=== PATIENT | female | born 1960 | race American Indian/Alaskan Native ===

== ENCOUNTER 2020-02-13 09:15 | Emergency (ER) | payer MEDICAID ==
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
== END 2020-02-13 10:16 | disposition left against medical advice (07) ==
LOC: JP.ED 09:15
DX: S01.112A Laceration without foreign body of left eyelid and periocular area, initial encounter (principal); S05.12XA Contusion of eyeball and orbital tissues, left eye, initial encounter; Z88.5 Allergy status to narcotic agent; F17.210 Nicotine dependence, cigarettes, uncomplicated; Y04.0XXA Assault by unarmed brawl or fight, initial encounter
CPT/HCPCS: 12011; 99284

== ENCOUNTER 2020-06-10 09:58 | Emergency (ER) | payer MEDICAID ==
--- NOTE | 2020-06-10 10:28 | EDM.PDOC ---
ED HPI GENERAL MEDICAL PROBLEM - General Chief Complaint: Lower Extremity Injury/Pain Stated Complaint: injured foot Time Seen by Provider: 06/10/20 10:24 Source of Information: Reports: Patient, EMS, RN Notes Reviewed History Limitations: Reports: No Limitations - History of Present Illness INITIAL COMMENTS - FREE TEXT/NARRATIVE: 59-year-old female presents emergency department today complaint of right ankle pain, states she fell last night twisting injury right ankle now she cannot bear weight - Related Data Allergies Allergy/AdvReac Type Severity Reaction Status Date / Time codeine Allergy Cannot Verified 06/10/20 10:16 Remember Home Meds: Home Meds NK [No Known Home Meds] 02/13/20 [History] Past Medical History [employer]ER History: Reports: Social & Family History - Tobacco Use Tobacco Use Status *Q: Current Every Day Tobacco User Years of Tobacco use: 5 Packs/Tins Daily: 0.5 - Caffeine Use Caffeine Use: Reports: None Review of Systems - Review of Systems Review Of Systems: See Below Musculoskeletal: Reports: Joint Pain (Ankle pain) ED EXAM, GENERAL - Physical Exam Exam: See Below Free Text/Narrative:: Examination of the right ankle I do appreciate some bruising along the lateral malleolus site on appreciate much edema she is very tender to any type of palpation along the ankle pedal pulses +2 cannot bear weight difficulty with flexion extension of the ankle Exam Limited By: No Limitations General Appearance: Alert, WD/WN, No Apparent Distress Respiratory/Chest: No Respiratory Distress Course - Vital Signs Last Recorded V/S: Last Vital Signs Temp 98.5 F 06/10/20 10:23 Pulse 63 06/10/20 10:23 Resp 14 06/10/20 10:23 BP 152/68 H 06/10/20 10:23 Pulse Ox 96 06/10/20 10:23 Departure - Departure Time of Disposition: 11:21 Disposition: Home, Self-Care 01 Condition: Fair Clinical Impression: Sprained ankle Qualifiers: Encounter type: initial encounter Involved ligament of ankle: unspecified ligament Laterality: right Qualified Code(s): S93.401A - Sprain of unspecified ligament of right ankle, initial encounter - Discharge Information Instructions: How to Use a Stirrup Ankle Brace, [id number], Crutch Use, Adult, [id number] Referrals: PCP,None [Primary Care Provider] - Forms: ED Department Discharge Additional Instructions: Use Tylenol or Motrin as needed for pain control, continue use the ankle brace and crutches for comfort, please followup with your primary care provider in 5- 7 days if not better, please call return to the emergency department with worsening of symptoms. Sepsis Event Note (ED) - Evaluation Sepsis Screening Result: No Definite Risk - Focused Exam Vital Signs: Vital Signs Temp Pulse Resp BP Pulse Ox 06/10/20 10:23 98.5 F 63 14 152/68 H 96 - Assessment/Plan Plan: Assessment Acuity = acute Site and laterality = right ankle sprain Etiology = secondary twisting injury Manifestations = none Location of injury = Home Lab values = x-ray reveals no fracture Plan She is placed in a air gel splint with crutches Tylenol and Motrin as needed for pain follow-up primary care next week for further evaluation if no improvement This note was dictated using [employer] voice recognition software please call with any questions on syntax or grammar.
--- NOTE | 2020-06-10 11:10 | CR ---
Ankle Min 3V Rt CLINICAL HISTORY: Pain, injury FINDINGS: The soft tissues are swollen particularly over the lateral malleolus.. No acute fracture or dislocation is noted. Ankle mortise is intact. Articular surfaces are smooth Impression: Soft tissue swelling No fracture or dislocation
[2020-06-10] MEDS ORDERED: Acetaminophen 325 MG Tab PO ONE (11:57)
== END 2020-06-10 14:32 | disposition home or self-care (01) ==
LOC: JP.ED 09:58
DX: S93.401A Sprain of unspecified ligament of right ankle, initial encounter (principal); Z88.5 Allergy status to narcotic agent; F17.210 Nicotine dependence, cigarettes, uncomplicated; X50.1XXA Overexertion from prolonged static or awkward postures, initial encounter
CPT/HCPCS: 73610; 99284; A9270

== ENCOUNTER 2024-01-31 01:17 | Emergency (ER) | payer MEDICAID ==
[2024-01-31] MEDS ORDERED: Rocuronium 50 MG/5 ML Vial ONE (01:29)
[2024-01-31] MEDS ORDERED: propofoL 100 ML ONE (01:31)
[2024-01-31] MEDS: Etomidate 2 MG/ML 10 ML SDV IVPUSH ONE ×2 (01:47→18:32)
[2024-01-31] MEDS: Rocuronium 50 MG/5 ML Vial IVPUSH ONE ×2 (01:47→18:31)
[2024-01-31] MEDS: propofoL 100 ML IV SCH (01:50)
[2024-01-31] MEDS ORDERED: propofoL 100 ML IV SCH (01:50)
[2024-01-31] MEDS: Sodium Chloride 0.9% 1,000 ML IV SCH ×2 (01:58→03:00)
[2024-01-31] MEDS ORDERED: hydrALAZINE 20 MG/ML SDV ONE (03:00)
[2024-01-31] MEDS: hydrALAZINE 20 MG/ML SDV IVPUSH ONE ×2 (03:02→18:31)
[2024-01-31 14:33] LABS: BASOPHILS ABSOLUTE AUTO 0.04 K/uL (0.00-0.10); BASOPHILS PERCENT AUTO 0.4 % (0.1-1.3); EOSINOPHILS PERCENT AUTO 0.2 % (0.0-5.4); HEMOGLOBIN 16.5 g/dL (11.2-15.5); IMMATURE GRAN PERCENT AUTO 0.2 % (0.0-0.7); LYMPHOCYTES ABSOLUTE AUTO 1.87 K/uL (0.8-3.3); LYMPHOCYTES PERCENT AUTO 17.5 % (11.4-47.7); MEAN CORPUSCULAR HEMOGLOBIN 31.3 pg (31.6-35.5); MEAN CORPUSCULAR HGB CONC 35.1 g/dL (31.6-35.5); MONOCYTES ABSOLUTE AUTO 0.82 K/uL (0.20-0.90); MONOCYTES PERCENT AUTO 7.7 % (3.3-12.6); NEUTROPHILS ABSOLUTE AUTO 7.91 K/uL (1.0-7.6); PLATELET COUNT,PLT 184 K/uL (130-375); RED BLOOD CELL COUNT 5.28 M/uL (3.77-5.24); WHITE BLOOD CELL COUNT,WBC 10.7 K/uL (3.2-11.0)
[2024-01-31 14:34] LABS: EOSINOPHILS ABSOLUTE AUTO 0.02 K/uL (0.00-0.40); IMMATURE GRAN ABSOLUTE AUTO 0.02 K/uL (0.00-0.23)
[2024-01-31 14:35] LABS: A/G RATIO 0.6 (1.2-2.2); ALANINE AMINOTRANSFERASE,ALT 98 U/L (12-78); ALBUMIN 3.3 g/dL (3.4-5.0); ALKALINE PHOSPHATASE 194 U/L (46-116); ANION GAP 11.9 mmol/L (5.0-14.0); ASPARTATE AMNIOTRANSFERASE,AST 128 U/L (15-37); BILIRUBIN TOTAL 1.7 mg/dL (0.2-1.0); BLOOD UREA NITROGEN,BUN 12 mg/dL (7-18); CALCIUM 8.9 mg/dL (8.5-10.1); CARBON DIOXIDE,CO2 24 mmol/L (21-32); CHLORIDE,CL 104 mmol/L (100-108); CREATINE KINASE,CK 131 U/L (26-192); CREATININE 0.6 mg/dL (0.6-1.0); ESTIMATED GFR 102 mL/min (>60); GLUCOSE RANDOM 109 mg/dL (74-106); POTASSIUM,K 3.7 mmol/L (3.6-5.2); SODIUM,NA 140 mmol/L (140-148)
[2024-01-31 14:41] LABS: CALCIUM IONIZED,ISTAT 1.16 mmol/L (1.12-1.32); HCO3 CAPILLARY,ISTAT 26.6 mmol/L (23.0-28.0); HEMATOCRIT,ISTAT 49 % (36-48); PCO2 CAPILLARY,ISTAT 41.5 mmHg (41.0-51.0); PH CAPILLARY,ISTAT 7.42 (7.31-7.41); PO2 CAPILLARY,ISTAT 35 mmHg; POTASSIUM,ISTAT 4.5 mmol/L (3.5-4.9); SODIUM,ISTAT 142 mmol/L (140-148); TCO2 CAPILLARY,ISTAT 28 mmol/L (24-29)
[2024-01-31 14:42] LABS: BASE EXCESS CAPILLARY,ISTAT 2 mmol/L
[2024-01-31 14:47] LABS: C-REACTIVE PROTEIN < 0.50 mg/dL (<0.50)
[2024-01-31 14:49] LABS: AMPHETAMINES SCREEN, URINE NEGATIVE (NEGATIVE); APPEARANCE,URINE CLOUDY (CLEAR); BARBITURATE SCREEN,URINE NEGATIVE (NEGATIVE); BENZODIAZEPINES SCREEN,URINE NEGATIVE (NEGATIVE); BILIRUBIN,URINE NEGATIVE (NEGATIVE); COLOR,URINE YELLOW (YELLOW); GLUCOSE,URINE NEGATIVE (NEGATIVE); KETONES,URINE NEGATIVE (NEGATIVE); LEUKOCYTE ESTERASE,URINE TRACE (NEGATIVE); METHADONE SCREEN, URINE NEGATIVE (NEGATIVE); METHAMPHETAMINES SCREEN, URINE PRESUMPTIVE POSITIVE (NEGATIVE); NITRITE,URINE NEGATIVE (NEGATIVE); OCCULT BLOOD,URINE MODERATE (NEGATIVE); OXYCODONE SCREEN,URINE NEGATIVE (NEGATIVE); PH,URINE 7.5 (5.0-8.0); PROPOXYPHENE SCREEN,URINE NEGATIVE (NEGATIVE); PROTEIN,URINE 100 mg/dL (NEGATIVE); THC SCREEN,URINE 50 NG/ML PRESUMPTIVE POSITIVE (NEGATIVE)
[2024-01-31 14:50] LABS: AMORPHOUS SEDIMENT,URINE NOT SEEN; BACTERIA,URINE MANY; EPITHELIAL CELLS,URINE FEW; MUCUS,URINE MODERATE; RBC,URINE 0-5 (0-5)
== END 2024-01-31 04:00 ==
LOC: JP.ED 01:17
DX: T43.651A Poisoning by methamphetamines accidental (unintentional), initial encounter (principal)
CPT/HCPCS: 31500; 36415; 51702; 71045; 80053; 80305; 80307; 81001; 82330; 82550; 82803; 83605; 84132; 84295; 84484; 85014; 85025; 86140; 93005; 96365; 96366; 96375; 99285; J0360; J2704; J3490; J7030